=== PATIENT | female | born 1945 | race Caucasian/White ===

== ENCOUNTER → 2016-09-15 | Outpatient (CLI) | payer OTHER ==
[2016-09-15 10:56] LABS: HEMATOCRIT 40.2 % (37.0-47.0); HEMOGLOBIN 13.3 gm/dL (12.0-15.0); MCH 28.7 pg (26.0-34.0); MCV 87.2 fL (80.0-100.0); RBC 4.61 mil/uL (4.20-5.00); RDW 14.5 % (10.5-14.5); WBC 7.5 thou/uL (4.0-11.0)
[2016-09-15 11:11] LABS: ALBUMIN 4.1 g/dL (3.4-5.0); CALCIUM 8.9 mg/dL (8.5-10.1); CREATININE 0.9 mg/dL (0.6-1.0); POTASSIUM 4.6 mmol/L (3.5-5.1); TOTAL BILIRUBIN 0.4 mg/dL (<0.1-1.0); TOTAL PROTEIN 7.2 g/dL (6.4-8.2)
== END ==
LOC: CAT 08:58
PROVIDERS: Internal Medicine Cardiovascular Disease
DX: I48.91 Unspecified atrial fibrillation (principal)

== ENCOUNTER 2016-09-18 06:33 | Observation (INO) | payer OTHER ==
[~2016-09-18] VITALS: Ht 157.5 cm; Wt 69.1 kg
--- NOTE | ~2016-09-18 | D ---
[facility] [place] [address] DISCHARGE SUMMARY Name: KEITH RODRIGUEZ Room #: 211-P [facility] Shahriar Kim#: [id number] Admission: 09/18/16 Attend Phys: Sha Lomeli MD Discharge: 09/19/16 Date of : 43 Report #: [id number] THIS REPORT FOR: //name// CC: DUC Lomeli DATE OF SERVICE: 09/19/2016 DATE OF ADMISSION: 09/18/2016. DATE OF DISCHARGE: 09/19/2016. ADMITTING DIAGNOSIS: Symptomatic paroxysmal atrial fibrillation. DISCHARGE DIAGNOSES: 1. Symptomatic paroxysmal atrial fibrillation. 2. Dyslipidemia. 3. Acid peptic disease. 4. Anxiety and depression syndrome. PROCEDURES PERFORMED: 1. Electrophysiologic testing. 2. Atrial fibrillation ablation. FOLLOWUP: Dr. Lomeli in 4 weeks. DISCHARGE MEDICATIONS: Pantozol 40 mg daily, fluoxetine 40 mg daily, bupropion 100 mg daily, atorvastatin 20 mg daily, metoprolol 25 mg b.i.d., flecainide 50 mg b.i.d. dabigatran 150 b.i.d. DISCHARGE DIET: Salt-restricted, heart healthy. BRIEF CLINICAL HISTORY: See history and physical in chart. HOSPITAL COURSE: The patient was admitted for atrial fibrillation ablation. He underwent uncomplicated atrial fibrillation ablation with resolution of dysrhythmia. Post-procedure, she did quite well without any significant hematoma developing. She was allowed to ambulate without any recurrent symptoms and discharged to home in improved and stable condition, to follow up with the previously stated discharge instructions and medications. <ELECTRONICALLY SIGNED> By: Juan Antonio Bro MD 09/20/16 1142 03 0241 Juan Antonio Bro MD /nt
--- NOTE | ~2016-09-18 | P ---
[facility] [place] [address] PROCEDURE REPORT Name: KEITH RODRIGUEZ Room #: 211-P [facility] M.Leon#: [id number] Admission: 09/18/16 Attend Phys: Sha Lomeli MD Discharge: 09/19/16 Date of : 43 Report #: [id number] THIS REPORT FOR: //name// CC: DUC Lomeli DATE OF SERVICE: 09/18/2016 PREOPERATIVE DIAGNOSIS: Paroxysmal atrial fibrillation. POSTOPERATIVE DIAGNOSIS: Paroxysmal atrial fibrillation. HISTORY: The patient is a 70-year-old female with history of paroxysmal AFib, who is intolerant of antiarrhythmic drugs and is here for AFib ablation. ANESTHESIA: The patient underwent general anesthesia with no anesthesia related complications. DESCRIPTION OF PROCEDURE: The patient underwent informed consent. We discussed the details of the procedure including the risks, which include but not limited to bleeding, infection, vascular damage, cardiac perforation. She understood these risks and was willing to proceed. She is brought to the EP laboratory in a fasting and sedated state and prepped and draped in a sterile fashion. I then injected lidocaine to the right groin and obtained access to the right femoral vein times 3, placing an 8, 9 and 7 Upper Sorbian short sheaths into the vein using the modified Seldinger technique and then I placed a decapolar catheter easily in the coronary sinus and an ICE catheter into the right atrium. At baseline, the patient was in sinus rhythm with a sinus cycle length of 930 milliseconds, RI interval 160 milliseconds, QRS duration 80 milliseconds, QT interval 455 milliseconds. Using intracardiac ultrasound, it was noted that her interatrial septum was semi-thick, but had a thin segment in the inferior one-third of the septum at an anterior location. Next, the patient was systemically heparinized and then using an SL1 sheath and a Rosman needle, a transseptal was performed. I was able to get the tip of the dye later into the left atrium, but could not advance the sheath into the left atrium. I did have a wire out in the left superior pulmonary vein. As such, I took the SL1 sheath out and I left the wire in the left superior pulmonary vein and then utilizing the cryoablation sheath, I was able to cross the interatrial septum after spending approximately a minute or two to trying to cross this area of septum. Next, I placed the cryoablation sheath into the left atrium and I performed isolation of the left superior pulmonary vein. She required 2 freezes each of 4 minutes' duration. During the second freeze, the vein isolated within 83 seconds. Next, I spent about 20 minutes trying to enter the left inferior pulmonary vein. [address] [address] PROCEDURE REPORT Name: KEITH RODRIGUEZ CHANDNI Room #: 211-P [facility] M.RVincent#: [id number] Admission: 09/18/16 Attend Phys: Sha Lomeli MD Discharge: 09/19/16 Date of : 43 Report #: [id number] Whatever reason, this had a difficult takeoff that was horizontal. I kept trying to enter this vein unsuccessfully. As such, I decided to turn my attention to the right superior pulmonary vein and during I performed a total of 4 freezes in this vein. The vein finally isolated within 30 seconds of the fourth freeze. However, I was starting to notice that the phrenic nerve was started to weaken, so we came off at 163 seconds. This vein was isolated. While awaiting for the phrenic nerve to return, I attempted to locate the left inferior pulmonary vein again. It is possible that this left inferior was part of a common ostium with the left superior pulmonary vein and I was eventually able to enter this and I performed 2 freezes in this vein and it was successfully isolated. Next, I turned my attention to the right inferior pulmonary vein. By this point, the phrenic nerve was back to full strength. I performed a single freeze of 4 minutes in this vein as the vein isolated within 70 seconds of the initial freeze with a maximal negative temperature of -39 degrees. All the veins were interrogated and found to remain isolated. As such, I pulled the sheath and cryoballoon to the right atrium. Utilizing intracardiac ultrasound, I verified that there was no pericardial effusion. Post-ablation, the patient was in sinus rhythm with sinus cycle length of 870 milliseconds, RI interval 150 milliseconds, QRS duration 80 milliseconds, and QT interval 440 milliseconds. As such, all the veins were isolated and the procedure was terminated. The patient received systemic protamine and once the ACT was within acceptable range, catheters and sheaths were pulled. Hemostasis was obtained and the patient awoke neurologically and hemodynamically intact with no significant bleeding. CONCLUSIONS: Successful AFib ablation with isolation of the 4 pulmonary veins using the cryoablation balloon. <ELECTRONICALLY SIGNED> By: Sha Lomeli MD 09/21/16 0831 [id number] Sha Lomeli MD /nt
[2016-09-18] MEDS ORDERED: LIPITOR 20 MG T20 M1 PO (06:57)
[2016-09-18] MEDS ORDERED: CLONAZEPAM 1 MG1 M1 PO (06:58)
[2016-09-18] MEDS ORDERED: WELLBUTRIN 100100 MG PO (06:58)
[2016-09-18] MEDS ORDERED: NEXIUM40 MG PO (06:59)
[2016-09-18] MEDS ORDERED: PRADAXA150 MG PO (06:59)
[2016-09-18] MEDS ORDERED: FLECAINIDE ACET50 M1 PO (07:00)
[2016-09-18] MEDS ORDERED: PROZAC20 MG PO (07:00)
[2016-09-18] MEDS ORDERED: TOPROL XL25 MG PO (07:01)
[2016-09-18] MEDS ORDERED: KLOR-CON 1010 MEQ PO (07:01)
[2016-09-18] MEDS ORDERED: LASIX 20 MG TAB20 MG PO (07:01)
[2016-09-18 07:03] LABS: ABSOLUTE NEUTROPHILS 3.7 thou/uL (1.4-8.2); BASOPHILS 0.8 % (0.0-2.0); EOSINOPHILS 3.7 % (0.0-3.0); HEMATOCRIT 38.7 % (37.0-47.0); LYMPHOCYTES 24.5 % (24.0-44.0); MCH 29.1 pg (26.0-34.0); MCHC 33.7 g/dL (28.0-37.0); MCV 86.3 fL (80.0-100.0); MONOCYTES 9.3 % (1.0-8.0); PLATELET COUNT 335 thou/uL (150-400); POLYS 61.7 % (36.0-66.0); RBC 4.48 mil/uL (4.20-5.00); RDW 14.2 % (10.5-14.5); WBC 5.9 thou/uL (4.0-11.0)
[2016-09-18 07:06] VITALS: BP 135/63
[2016-09-18 07:14] LABS: MANUAL DIFF NO
[2016-09-18 07:20] LABS: APTT 29.6 Seconds (24.5-32.8); INR 1.1; PROTIME 11.4 Seconds (9.3-11.4)
[2016-09-18 07:21] LABS: CREATININE 0.9 mg/dL (0.6-1.0); POTASSIUM 4.2 mmol/L (3.5-5.1)
[2016-09-18 07:25] LABS: ALBUMIN 3.9 g/dL (3.4-5.0); TOTAL BILIRUBIN 0.4 mg/dL (<0.1-1.0); TOTAL PROTEIN 6.9 g/dL (6.4-8.2)
[2016-09-18 13:35] VITALS: BP 124/74
[2016-09-18 14:35] VITALS: BP 116/61
[2016-09-18 15:35] VITALS: BP 120/66
[2016-09-18 20:28] VITALS: BP 110/59
[2016-09-19 05:30] VITALS: BP 111/71
[2016-09-19 07:50] VITALS: BP 125/58
[2016-09-19 15:20] VITALS: BP 147/82
[2016-09-19 16:12] VITALS: BP 147/82
== END 2016-09-19 17:50 | disposition home or self-care (01) ==
LOC: CATH 06:33 → 2N 13:59 → CATH 14:15 → 2N 09-19 17:50
PROVIDERS: Internal Medicine Cardiovascular Disease
DX: I48.0 Paroxysmal atrial fibrillation (principal); E78.5 Hyperlipidemia, unspecified; F41.9 Anxiety disorder, unspecified; F32.9 Major depressive disorder, single episode, unspecified; K30 Functional dyspepsia
CPT/HCPCS: 62110; 62900; 65020; 65040; 65043; 70005

== ENCOUNTER → 2018-03-31 | Outpatient (CLI) | payer OTHER ==
[~2018-03-31] MED LIST: CLONAZEPAM 1 MG1 M1 PO; FLECAINIDE ACET50 M1 PO; KLOR-CON 1010 MEQ PO; LASIX 20 MG TAB20 MG PO; LIPITOR 20 MG T20 M1 PO; NEXIUM40 MG PO; PRADAXA150 MG PO; PROZAC20 MG PO; TOPROL XL25 MG PO; WELLBUTRIN 100100 MG PO
--- NOTE | ~2018-03-31 | P ---
[facility] [place] [address] PROCEDURE REPORT Name: JENNIFERKEITHMESHA TARIQ [facility] [id number] Admission: 03/31/18 Attend Phys: Sha Lomeli MD Discharge: Date of : 43 Report #: [id number] THIS REPORT FOR: //name// CC: FAM essence DUC CHARMAINE Lomeli DATE OF SERVICE: 03/31/2018 PROCEDURE: Implantation of an insertable loop recorder. PREOPERATIVE DIAGNOSES: 1. Palpitations. 2. Paroxysmal atrial fibrillation. POSTOPERATIVE DIAGNOSES: 1. Palpitations. 2. Paroxysmal atrial fibrillation. HISTORY: The patient is a 72-year-old with history of paroxysmal atrial fibrillation, status post AFib ablation. She is wearing recent cardiac/vascular sonographer showing a recurrent AFib, but continues to have frequent palpitations and is therefore here for implantation of an implantable loop recorder. DESCRIPTION OF PROCEDURE: The patient underwent informed consent. She was prepped and draped in a sterile fashion. I injected 20 mL of lidocaine at the incision site. An incision was made and the [employer] Confirm implantable loop recorder was inserted under the skin. I performed a single suture of 2-0 Vicryl and placed some surgical glue on the skin. There was no significant bleeding or complications. The implanted monitor was a [employer] Confirm Rx, records #[id number], serial #[id number]. CONCLUSIONS: Successful implantation of an implantable loop recorder. <ELECTRONICALLY SIGNED> By: Sha Lomeli MD 03/31/18 1314 1257 1310 Sha Lomeli MD /nt
[2018-03-31 11:53] VITALS: BP 113/60
== END | disposition home or self-care (01) ==
LOC: CATH 03-30 10:08
DX: I48.0 Paroxysmal atrial fibrillation (principal); R00.2 Palpitations; Z79.01 Long term (current) use of anticoagulants; Z88.0 Allergy status to penicillin; Z88.8 Allergy status to other drugs, medicaments and biological substances; Z79.899 Other long term (current) drug therapy

== ENCOUNTER 2018-05-16 09:39 | Outpatient (CLI) | payer OTHER ==
[~2018-05-16] VITALS: Ht 157.5 cm; Wt 76.7 kg
--- NOTE | ~2018-05-16 | P ---
[facility] [place] [address] PROCEDURE REPORT Name: KIETH RODRIGUEZ Room #: 207-P [facility] [id number] Admission: 05/16/18 Attend Phys: Sha Lomeli MD Discharge: Date of : 43 Report #: [id number] THIS REPORT FOR: //name// CC: FAM unknown DUC CHARMAINE Lomeli DATE OF SERVICE: 05/16/2018 PREOPERATIVE DIAGNOSIS: Atrial fibrillation. POSTOPERATIVE DIAGNOSES: Atrial fibrillation and atrial flutter. HISTORY: The patient is a 72-year-old female, status post AFib ablation back in the summer of 2016 with isolation of the 4 pulmonary veins. Since then, she has had recurrent palpitations and implantation of a [employer] Confirm implantable loop recorder, which showed recurrent atrial fibrillation despite antiarrhythmic drug therapy. She is here for repeat AFib ablation. PROCEDURES PERFORMED: 1. Atrial fibrillation ablation, CPT code 34364. 2. Program stimulation and pacing after IV drug infusion, CPT code 92270. 3. 3D mapping EP, CPT code 27045. 4. Intracardiac echocardiography, CPT code 48931. 5. Ablation of atrial flutter, CPT code 07171. ANESTHESIA: The patient underwent general anesthesia with no anesthesia related complications. DESCRIPTION OF PROCEDURE: The patient underwent informed consent. We discussed the details of the procedure including the risks, which include but not limited to bleeding, vascular damage, stroke, [place] as well as cardiac perforation. She understood these risks and is willing to proceed. The patient was brought to the EP laboratory in a fasting and unsedated state and prepped and draped in a sterile fashion. The patient was placed under general anesthesia. I then obtained access to bilateral femoral veins placing two 8-Ivorian short sheaths in the right femoral vein and a 7-Ivorian and 9-Ivorian short sheath in the left femoral vein using the modified Seldinger technique. Next, under fluoroscopy, I placed a decapolar catheter easily into the coronary sinus and ICE catheter into the right atrium. Next, using intracardiac ultrasound, I created 3D geometry using [employer]. The patient had a large left atrial appendage, had a left superior pulmonary vein with a very superior takeoff and had a left inferior pulmonary vein that appeared to come off of the left inferior pulmonary vein, potentially common ostium. The patient also had a right superior, right inferior pulmonary veins. [address] [address] PROCEDURE REPORT Name: KEITH RODRIGUEZ Room #: 207-P [facility]#: [id number] Admission: 05/16/18 Attend Phys: Sha Lomeli MD Discharge: Date of : 43 Report #: [id number] At baseline, the patient was in sinus rhythm with sinus cycle length of 1030 milliseconds, [place] interval 110 milliseconds, QRS duration 99 milliseconds, QT interval 451 milliseconds. Next, a transseptal was performed using an SL1 sheath and a Kennedy needle. I found a nice anterior and inferior location and then I went on with the Kennedy. I was able to enter with the dilator of the SL1 into the left atrium and advanced a wire up into the left superior pulmonary vein. Similar to the last procedure, I did have difficulties crossing the interatrial septum. It was quite fibrosed and at last time, I could not cross easily. At this time, it was more challenging. Therefore, I used a 6 mm x 4 cm balloon and I ballooned the septum at this site. This allowed me to cross with the SL1 with ease. Of note, the patient was systemically heparinized prior to the transseptal. Once in the left atrium with the SL1 sheath, I placed a Lasso catheter and created a voltage map of the left atrium and a detailed 3D geometry. This showed that the only vein that remained isolated was the right superior pulmonary vein. The left inferior pulmonary vein was slightly still connected. The right inferior pulmonary vein had some connection along the inferior portion and the left inferior pulmonary vein had a very flat anatomy, which made placing the Lasso catheter impossible. This was also noted at the time of my last ablation where it took me 30 minutes to even get the cryoballoon to engage the left inferior pulmonary vein. Initially, plans were to perform RF ablation, but given this challenging anatomy, I decided to again utilize the cryoablation balloon. Therefore, I started by isolating the left superior pulmonary vein. Of note, this had a very superior takeoff and I performed a total of 3 freezes each of 4 minutes' duration. Preablation in this vein, there was evidence of a connection with pacing and post-ablation, there was evidence of entrance and exit block. I then turned my attention again to the left inferior pulmonary vein. Again, this vein was challenging to engage even with the Achieve catheter. I had to basically place the Achieve and cryoballoon in the left superior pulmonary vein and pull down into the left inferior vein, which was why I feel that this was more likely common. This showed some slight isolation along the inferior portion of the vein and I performed a total of 3 freezes in this vein with each freeze was of 4 minutes' duration and post-ablation, there was evidence of isolation. I then turned my attention to the right inferior pulmonary vein. Again, this vein was also unusually challenging. It had more of a superior takeoff than most right inferior pulmonary veins. Also, when I would try to exclude the balloon on this vessel, I lost access twice of the vessel. Eventually, I was able to stabilize my Achieve deep into the vessel and we performed 2 freezes, one was 180 seconds of duration and the second was 120 seconds duration as we had good temperatures. A phrenic nerve remained stable throughout isolation of this vein. Post-ablation, the veins were tested and there was now evidence of isolation of all four pulmonary veins. As such, I pulled my ablation sheath and balloon into the right atrium and a basic EP study was performed. AV block was noted at 360 milliseconds, atrial ERP was noted at 250 milliseconds at a 500 millisecond [facility] [address] [place] [address] PROCEDURE REPORT Name: KEITH RODRIGUEZ CHANDNI Room #: 207-P [facility] Julio#: [id number] Admission: 05/16/18 Attend Phys: Sha Lomeli MD Discharge: Date of : 43 Report #: [id number] cycle length. Next, isoproterenol infusion was initiated at 1 mcg per minute and AV block was noted at 310 milliseconds and AV lily ERP was noted at 250 milliseconds at a [address] cycle length. There was no evidence of inducible supraventricular tachycardia. Atrial flutter ablation: Based on the patient's recently documented atrial flutter, I decided to perform a flutter line on the right side. I utilized a [employer] Townsend 8 mm ablation catheter via a ramp sheath. I performed 2 or 3 lines and I still do not have block. Based on pacing medial and lateral to my line of ablation. I, therefore, at this point, placed a live wire Duo-Decapolar catheter into the right atrium. This clearly demonstrated I did not have bidirectional block. I therefore created a voltage map of the isthmus and I found some sharper electrograms and I was able to lengthen my trans-isthmus conduction time from 70-110 milliseconds. I created another voltage map and did not appear to be any further voltage in this area. Therefore, flutter line was concluded. Post-ablation, I used intracardiac ultrasound and verified that there was no pericardial effusion. Post-ablation, she remained in sinus rhythm with sinus cycle length 950 milliseconds, [place] interval 135 milliseconds, QRS duration 95 milliseconds, QT interval 405 milliseconds. As such, the patient received systemic protamine. Once ACT was within acceptable range, all catheters and sheaths were pulled. Hemostasis was obtained. CONCLUSIONS: 1. Successful AFib ablation with re-isolation of the left superior, left inferior and right inferior pulmonary veins. 2. Successful atrial flutter ablation. By: [id number] Sha Lomeli MD /nt
[2018-05-16 10:24] VITALS: BP 126/70
[2018-05-16 10:56] LABS: ABSOLUTE NEUTROPHILS 4.6 thou/uL (1.4-8.2); BASOPHILS 0.7 % (0.0-2.0); EOSINOPHILS 3.6 % (0.0-3.0); HEMATOCRIT 39.8 % (37.0-47.0); HEMOGLOBIN 13.5 gm/dL (12.0-15.0); LYMPHOCYTES 26.7 % (24.0-44.0); MCH 29.5 pg (26.0-34.0); MCHC 33.9 g/dL (28.0-37.0); MONOCYTES 9.3 % (1.0-8.0); PLATELET COUNT 414 thou/uL (150-400); POLYS 59.7 % (36.0-66.0); RBC 4.58 mil/uL (4.20-5.00); RDW 13.7 % (10.5-14.5); WBC 7.8 thou/uL (4.0-11.0)
[2018-05-16 11:04] LABS: CALCIUM 9.1 mg/dL (8.5-10.1); CREATININE 0.9 mg/dL (0.6-1.0); POTASSIUM 4.3 mmol/L (3.5-5.1)
[2018-05-16 11:09] LABS: INR 1.1; PROTIME 11.2 Seconds (9.3-11.4)
[2018-05-16 11:10] LABS: ALBUMIN 3.9 g/dL (3.4-5.0); TOTAL BILIRUBIN 0.4 mg/dL (<0.1-1.0)
[2018-05-16 19:31] VITALS: BP 126/70
[2018-05-17 00:18] VITALS: BP 109/48
[2018-05-17 04:57] VITALS: BP 106/51
[2018-05-17 07:21] VITALS: BP 111/85
[2018-05-17] MEDS ORDERED: ELIQUIS5 MG PO ×2 (08:25→08:30)
[2018-05-17] MEDS ORDERED: TOPROL XL25 MG PO (08:25)
[2018-05-17] MEDS ORDERED: TAMBOCOR 100 M100 M1 PO (08:59)
[2018-05-17] MEDS ORDERED: PANTOPRAZOLE SO40 M1 PO (09:01)
[2018-05-17 10:17] VITALS: BP 126/70
[2018-05-17 11:12] VITALS: BP 110/80
[2018-05-17 13:24] VITALS: BP 126/70
== END 2018-05-17 14:09 | disposition home or self-care (01) ==
LOC: CATH 09:39 → 2N 16:17 → ENTRNSPT 05-17 13:56 → EDTRNSPTSTS 05-17 13:58 → CATH 05-17 14:09
PROVIDERS: Internal Medicine Cardiovascular Disease
DX: I48.91 Unspecified atrial fibrillation (principal); I48.92 Unspecified atrial flutter; I50.9 Heart failure, unspecified; Z98.41 Cataract extraction status, right eye; Z98.42 Cataract extraction status, left eye; Z88.0 Allergy status to penicillin; Z98.890 Other specified postprocedural states; Z88.8 Allergy status to other drugs, medicaments and biological substances; Z79.899 Other long term (current) drug therapy
CPT/HCPCS: 10081; 62110; 62900; 65020; 65040; 70005